=== PATIENT | male | born 1995 | race Caucasian/White ===

== ENCOUNTER 2018-02-23 11:43 | Emergency (ER) | payer MEDICAID ==
[~2018-02-23] VITALS: Ht 165.1 cm; Wt 151.5 kg
[2018-02-23 11:56] VITALS: Ht 165.1 cm; Wt 151.5 kg
[2018-02-23 14:39] VITALS: BP 151/87
== END 2018-02-23 14:39 | disposition home or self-care (01) ==
LOC: ED 11:43
DX: M79.672 Pain in left foot (principal)
CPT/HCPCS: Q0092